=== PATIENT | female | born 2000 | race African-American/Black ===

== ENCOUNTER 2020-09-18 13:31 | Emergency (ER) | payer MEDICAID ==
[~2020-09-18] VITALS: Ht 149.9 cm; Wt 61.4 kg
[2020-09-18 13:56] VITALS: TEMP 98.9
[2020-09-18 16:14] VITALS: BP 121/70; PULSE 78
== END 2020-09-18 16:16 | disposition home or self-care (01) ==
LOC: COL.ER 13:31
DX: U07.1 COVID-19 (principal)

== ENCOUNTER 2021-01-19 13:00 | Emergency (ER) | payer MEDICAID ==
[~2021-01-19] VITALS: Ht 152.4 cm; Wt 63.6 kg
[2021-01-19 13:23] LABS: COLLECTION METHOD CLEAN CATCH
[2021-01-19 13:31] LABS: MUCOUS Present /lpf; PH 5 (5-8); URINE APPEARANCE Hazy; URINE BACTERIA Rare /hpf; URINE BILIRUBIN Negative (NEGATIVE); URINE BLOOD Negative (NEGATIVE); URINE COLOR Yellow; URINE GLUCOSE Negative (NEGATIVE); URINE KETONE Trace (NEGATIVE); URINE LEUKOCYTE ESTERASE Trace (NEGATIVE); URINE NITRATE Negative (NEGATIVE); URINE PROTEIN(semi-quant) Negative (NEGATIVE); URINE RBC 0-2 /hpf; URINE UROBILINOGEN Negative (NEGATIVE)
[2021-01-19 14:17] LABS: ALBUMIN 3.8 gm/dL (3.5-5.0); BILIRUBIN,TOTAL 0.5 mg/dL (0.2-1.2); C-REACTIVE PROTEIN 0.4 mg/dL (0.00-0.50); CALCIUM 9.5 mg/dL (8.4-10.2); CREATININE, serum 0.64 mg/dL (0.57-1.11); POTASSIUM 3.5 mmol/L (3.5-4.5); TOTAL PROTEIN 7.1 gm/dL (6.2-8.1)
[2021-01-19 14:20] LABS: BASO # 0.1 K/mm3 (0.0-0.2); BASO % 0.5 % (0.0-2.0); EOS # 0.1 K/mm3 (0.0-0.7); EOS % 0.6 % (0-4.0); GRAN # 9.6 K/mm3 (1.4-6.5); GRAN % 78.9 % (42.2-75.2); HEMATOCRIT 43.3 % (37.0-47.0); HEMOGLOBIN 15.4 g/dl (12.5-16.0); LYMPH # 1.8 K/mm3 (1.2-3.4); LYMPH % 14.8 % (20.0-51.0); MEAN CELL VOLUME 85 fl (80.0-100.0); MEAN CORPUSCULAR HEMOGLOBIN 30 pg (27.0-31.0); MEAN CORPUSCULAR HGB CONC 36 g/dl (33.0-37.0); MEAN PLATELET VOLUME 10.2 fl (7.4-10.4); MONO # 0.6 K/mm3 (0.1-0.6); MONO % 4.9 % (1.7-9.3); PLATELET COUNT 250 K/mm3 (130-400); RED BLOOD COUNT 5.11 M/mm3 (4.10-5.30); REDCELL DISTRIBUTION WIDTH-CV 12.9 % (11.5-14.5)
[2021-01-19 16:00] VITALS: BP 122/65; PULSE 63; TEMP 98
== END 2021-01-19 16:10 | disposition home or self-care (01) ==
LOC: COL.ER 13:00
PROVIDERS: Family Medicine
DX: O98.511 Other viral diseases complicating pregnancy, first trimester (principal); U07.1 COVID-19; Z3A.12 12 weeks gestation of pregnancy
CPT/HCPCS: J2550; J7120

== ENCOUNTER 2021-03-03 09:30 | Emergency (ER) | payer MEDICAID ==
[~2021-03-03] VITALS: Ht 149.9 cm; Wt 66.8 kg
[2021-03-03 09:41] VITALS: TEMP 97.3
[2021-03-03 10:05] LABS: BASO % 0.3 % (0.0-2.0); EOS # 0.1 K/mm3 (0.0-0.7); EOS % 0.9 % (0-4.0); GRAN # 6.1 K/mm3 (1.4-6.5); HEMATOCRIT 44.2 % (37.0-47.0); HEMOGLOBIN 15.2 g/dl (12.5-16.0); LYMPH # 2.3 K/mm3 (1.2-3.4); LYMPH % 25.8 % (20.0-51.0); MEAN CELL VOLUME 87 fl (80.0-100.0); MEAN CORPUSCULAR HEMOGLOBIN 30 pg (27.0-31.0); MEAN CORPUSCULAR HGB CONC 34 g/dl (33.0-37.0); MEAN PLATELET VOLUME 10.3 fl (7.4-10.4); MONO # 0.4 K/mm3 (0.1-0.6); MONO % 4.7 % (1.7-9.3); PLATELET COUNT 244 K/mm3 (130-400); RED BLOOD COUNT 5.09 M/mm3 (4.10-5.30)
[2021-03-03 10:21] LABS: ALBUMIN 3.6 gm/dL (3.5-5.0); BILIRUBIN,TOTAL 0.6 mg/dL (0.2-1.2); C-REACTIVE PROTEIN 0.6 mg/dL (0.00-0.50); CALCIUM 9.3 mg/dL (8.4-10.2); CREATININE, serum 0.68 mg/dL (0.57-1.11); TOTAL PROTEIN 7.4 gm/dL (6.2-8.1)
[2021-03-03] MEDS ORDERED: PHENERGAN 25 TA25 MG PO (10:45)
[2021-03-03 11:42] VITALS: BP 96/41; PULSE 56
== END 2021-03-03 11:42 | disposition home or self-care (01) ==
LOC: COL.ER 09:30
PROVIDERS: Emergency Medicine
DX: O98.512 Other viral diseases complicating pregnancy, second trimester (principal); U07.1 COVID-19; Z3A.14 14 weeks gestation of pregnancy
CPT/HCPCS: J2405; J2550; J7030

== ENCOUNTER 2021-07-22 13:07 | Outpatient (CLI) | payer MEDICAID ==
[~2021-07-22] VITALS: Ht 152.4 cm; Wt 77.3 kg
[~2021-07-22 13:07] MED LIST: PHENERGAN 25 TA25 MG PO
[2021-07-22] MEDS ORDERED: PRENATAL TABLET PO (13:20)
[2021-07-22 13:45] VITALS: BP 118/63; PULSE 105; TEMP 97.9
--- NOTE | 2021-07-22 13:45 | NUR ---
1315 Patient ambulatory to [facility]6 with c/o leaking of fluid and decreased movement. She reports that while on the toilet she felt like she continued to leak fluid after she had emptied her bladder. She denies contractions or leaking of fluid. She reports that baby is not moving as much as usual. "only a few times an hour". When asked if she feels that baby has had 10 movements in 2 hours today she states that she has. Patient states that she has had care through [facility]. She states that she is a G3L1 at 33.5 weeks gestation. Patient changed into gown, EFMs explained and applied, VSS. 1325 SVE closed/thick/high, amniotrace negative, no fluid noted on glove with exam. 1335 Dr. Hendricks on unit, updated on patient's arrival, complaints, and exam. Dr. Hendricks reviews FHR tracing, orders to discharge home after monitoring received. Plan of care reviewed with patient. 1345 Patient off EFM, discharge instructions reviewed. 1355 Patient discharged home in stable condition.
== END 2021-07-22 13:55 | disposition home or self-care (01) ==
LOC: LDRO 13:07
DX: O36.8130 Decreased fetal movements, third trimester, not applicable or unspecified (principal); O42.913 Preterm premature rupture of membranes, unspecified as to length of time between rupture and onset of labor, third trimester; Z3A.30 30 weeks gestation of pregnancy

== ENCOUNTER 2021-08-21 19:24 | Outpatient (CLI) | payer MEDICAID ==
[~2021-08-21 19:24] MED LIST changes: +PRENATAL TABLET PO
--- NOTE | 2021-08-21 19:30 | NUR ---
PT ARRIVED TO UNIT WITH COMPLAINTS OF CONTRACTIONS, PELVIC PRESSURE, AND POSSIBLE SROM. PT ORIENTED TO ROOM, CHANGED INTO GOWN, VS OBTAINED, EFM APPLIED, SVE PERFORMED.
[2021-08-21 20:00] VITALS: BP 122/69; PULSE 87
[2021-08-21 20:30] VITALS: BP 111/71; PULSE 101
[2021-08-21 20:54] VITALS: BP 112/71; PULSE 106
--- NOTE | 2021-08-21 20:54 | NUR ---
SVE UNCHANGED, PT DENIES FEELING CONTRACTIONS. PT MAY DC HOME PER DR. MAIER. MONITORING DC'D AT THIS TIME.
--- NOTE | 2021-08-21 21:05 | NUR ---
DISCHARGE INSTRUCTIONS REVIEWED WITH PT, QUESTIONS ENCOURAGED AND ANSWERED, UNDERSTANDING VERBALIZED. PT OFF THE UNIT AMBULATORY.
== END 2021-08-21 21:05 | disposition home or self-care (01) ==
LOC: LDR 19:24 → LDRO 19:24 → LDR 19:30 → LDRO 21:05
DX: O47.1 False labor at or after 37 completed weeks of gestation (principal); O26.893 Other specified pregnancy related conditions, third trimester; R10.2 Pelvic and perineal pain; Z3A.38 38 weeks gestation of pregnancy
CPT/HCPCS: OP

== ENCOUNTER 2023-10-25 18:49 | Emergency (ER) | payer MEDICAID ==
[~2023-10-25] VITALS: Ht 149.9 cm; Wt 53.6 kg
[~2023-10-25 18:49] MED LIST changes: +ATARAX50 MG PO; +FLEXERIL 1010 MG/TAB PO; +ZOFRAN ODT4 MG PO
[2023-10-25 18:54] VITALS: TEMP 98.4
[2023-10-25] MEDS ORDERED: FAMVIR250 MG PO (19:21)
[2023-10-25 19:57] VITALS: BP 103/61; PULSE 77
== END 2023-10-25 19:57 | disposition home or self-care (01) ==
LOC: COL.ER 18:49
DX: B00.9 Herpesviral infection, unspecified (principal)